=== PATIENT | male | born 1980 | race Caucasian/White ===

== ENCOUNTER 2023-06-02 12:00 | Emergency (ER) | payer BC, SELFPAY ==
--- NOTE | 2023-06-02 12:13 | ED_ITS ---
HPI - General Adult General Time Seen by Provider: 12:13 Date Seen: 06/02/23 Chief complaint: Sore Throat Stated complaint: Sore throat, possible strep Time Seen by Provider: 06/02/23 12:09 Source: patient Mode of arrival: ambulatory Limitations: no limitations History of Present Illness HPI narrative: Eduin is a 43-year-old male with no past medical history presents emergency department via private car and self with a sore throat. Patient states he developed sore throat last Tuesday, he works the 3rd shift at work, throughout the night progressively gotten worse, felt it was harder to swallow, denies any muffling of voice, drooling, feels like his ears are plugged, does not have any ongoing congestion, he developed a cough which is nonproductive yesterday. Only sick contact was sister who is 47, diagnosed with strep pharyngitis. Patient used to smoke 11 years ago. He is get sensation of feeling hot, no fevers, no chills, denies any nausea vomiting, patient has been eating and drinking normally. Denies any chest pain or shortness of breath. He took ibuprofen around 7:00 a.m. this morning. No other concerns at this time. Related Data Home Medications Medication Instructions Recorded Confirmed No Known Home Medications 06/02/23 06/02/23 Allergies Allergy/AdvReac Type Severity Reaction Status Date / Time Penicillins Allergy Unknown Verified 06/02/23 12:14 Review of Systems Status of ROS: Reports: 10 or more systems reviewed and unremarkable except as noted in History and below PFSH PFS Social History Smoking Status: Never smoker Do you use any of these nicotine containing products: Smokeless Tobacco How often do you have a drink containing alcohol: monthly or less AUDIT-C Alcohol total score: 1 Non-prescribed substance use: denies use service: No Exam Narrative: Exam Narrative: General: No obvious distress sitting comfortably, HEENT: Tympanic membranes within normal limits bilaterally, oropharynx shows post oropharyngeal erythema, uvula midline, no peritonsillar abscess, no exudate Neck: Mild bilateral submandibular adenopathy Lungs: Clear to auscultation bilaterally Heart: Normal sinus rhythm S1-S2 Muscle skeletal: +5 strength upper lower extremities Abdomen: Soft nontender Neuro: Alert awake and oriented x3 Const: Vital Signs, click to edit/add: Vital Signs - 24 hr 06/02/23 12:14 Temperature 97.8 F Pulse Rate [Right Pulse Oximeter] 107 H Respiratory Rate 18 Blood Pressure [Ri ght Upper Arm] 169/120 H Pulse Oximetry 97 Oxygen Delivery Me thod Room Air Course Course ED Course: AIDET performed, vitals are stable at this time, mildly elevated blood pressure and heart rate will continue to monitor, workup will include COVID-flu A/B/RSV nasopharyngeal swab, will also obtain strep a DNA probe, 400 mg oral Motrin and 40 mg oral prednisone for pain and inflammation. Differential diagnosis include viral pharyngitis, strep throat, bronchitis, medication side effects, sialadenitis, malignancy, peritonsillar abscess as well as all etiologies. Reevaluation(s) Reevaluation #1: Patient was updated on his lab results, blood pressure improved during his stay, viral nasopharyngeal swabs were negative, group a strep DNA was also negative, he was feeling better after above care given, plan would be to discharge, prescription for 40 mg once daily over the next 3 days, continue with Motrin 4- 600 mg or 1 g Tylenol every 4-6 hours as needed for pain. Follow up with primary in one weeks time. Vital Signs Vital signs: Initial Vital Signs Temperature 97.8 F 06/02/23 12:14 Temperature Source Temporal Artery Scan 06/02/23 12:14 Pulse Rate 107 H 06/02/23 12:14 Respiratory Rate 18 06/02/23 12:14 Blood Pressure 169/120 H 06/02/23 12:14 Blood Pressure Mean 136 H 06/02/23 12:14 Blood Pressure Position Sitting 06/02/23 12:14 Pulse Oximetry 97 06/02/23 12:14 Oxygen Delivery Method Room Air 06/02/23 12:14 Vital Signs Temperature 97.8 F 06/02/23 12:14 Pulse Rate 107 H 06/02/23 12:14 Respiratory Rate 18 06/02/23 12:14 Blood Pressure 169/120 H 06/02/23 12:14 Pulse Oximetry 97 06/02/23 12:14 Oxygen Delivery Method Room Air 06/02/23 12:14 Temperature 97.8 F 06/02/23 12:14 Pulse Rate 107 H 06/02/23 12:14 Respiratory Rate 18 06/02/23 12:14 Blood Pressure 169/120 H 06/02/23 12:14 Pulse Oximetry 97 06/02/23 12:14 Oxygen Delivery Method Room Air 06/02/23 12:14 Medications Administered Medications: Discontinued Medications Generic Name Dose Route Start Last Admin Trade Name T[facility] Reason Stop Dose Admin Ibuprofen 400 mg 06/02/23 12:18 06/02/23 12:27 Ibuprofen 400 Mg Tablet PO 06/02/23 12:19 400 mg ONCE ONE Administration Prednisone 40 mg 06/02/23 12:18 06/02/23 12:27 Prednisone 20 Mg Tablet PO 06/02/23 12:19 40 mg ONCE ONE Administration Medical Decision Making Lab Data Labs: Lab Results 06/02/23 Range/Units 12:10 SARS-CoV-2 (PCR) Negative SARS-CoV-2 (Negative) Influenza Type A (PCR) Negative PCR FLU A (Negative) Influenza Type B (PCR) Negative PCR FLU B (Negative) RSV (PCR) Negative PCR RSV (Negative) Group A Strep DNA NOT DETECTED (Not Detectd) Discharge Plan Discharge Clinical Impression: Pharyngitis Patient Disposition: Home, Self-Care Condition: Improved Instructions: Pharyngitis (ED) Additional Instructions: Prednisone 40 mg daily over the next 3 days, continue with Tylenol and or Motrin every 4-6 hours as needed for pain, follow-up with primary care provider as needed over the next 7-10 days, return if worsening symptoms. Activity Level: No Restrictions Prescriptions: No Action No Known Home Medications Follow Up/Referrals: Provider,Not a Local [Primary Care Provider] - Stand Alone Forms: [facility] Info Instructions
[2023-06-02 12:14] VITALS: BP 169/120; PULSE 107; RESP 18; TEMP 36.6; O2SAT 97; BMI 30.1
[2023-06-02] MEDS: IBUPROFEN 400 MG TABLET PO (12:27)
[2023-06-02] MEDS: predniSONE 20 MG TABLET 40 MG PO (12:27)
[2023-06-02 12:45] LABS: Strep A DNA Probe* NOT DETECTED (Not Detectd)
[2023-06-02 12:56] LABS: PCR FLU A Negative PCR FLU A (Negative); PCR FLU B Negative PCR FLU B (Negative); PCR RSV Negative PCR RSV (Negative)
[2023-06-02 12:57] LABS: SARS PCR* Negative SARS-CoV-2 (Negative)
== END 2023-06-02 13:28 | disposition home or self-care (01) ==
PROVIDERS: Emergency Provider Student in an Organized Health Care Education/Training Program
DX: J02.9 Acute pharyngitis, unspecified (principal)
CPT/HCPCS: 87631; 87651; 99283; 99284; A9270; J7512

== ENCOUNTER 2023-07-04 13:54 | Emergency (ER) | payer OTHER, SELFPAY ==
[2023-07-04 14:26] VITALS: BP 186/103; PULSE 71; RESP 19; TEMP 36.8; O2SAT 98; BMI 31.0
--- NOTE | 2023-07-04 15:25 | ED_ITS ---
HPI - SOB/Dyspnea General Date Seen: 07/04/23 Chief Complaint: Diarrhea Stated Complaint: - home COVID test, roommate + Time Seen by Provider: 07/04/23 14:43 Source: patient Mode of arrival: ambulatory Limitations: no limitations History of Present Illness HPI Narrative: Patient is a 43-year-old gentleman who presents here with his roommate who tested positive for COVID, he has symptoms of a cough sore throat runny nose, he was immunized for COVID the 2 primary series. Denies any side significant fevers, chills nausea vomiting, he does feel little winded when he walks around. No leg swelling, no past history of pulmonary emboli and no cardiac history, he does have an elevated BMI. He is on no chronic medications MD elicited complaint: shortness of breath Context: recent illness Severity: moderate Exacerbating factors: nothing Relieving factors: nothing Associated symptoms: denies other symptoms Treatment prior to arrival: none Related Data Home oxygen amount: none Previous Rx's Medication Instructions Recorded nirmatrelvir 300 mg (150 mg See Rx Instructions PO .COMPLEX 07/04/23 x2)-ritonavir 100 mg tablet,dose #30 ea pack (Paxlovid) Allergies Allergy/AdvReac Type Severity Reaction Status Date / Time Penicillins Allergy Unknown Verified 06/02/23 12:14 PFSH PFS Social History Smoking Status: Never smoker Do you use any of these nicotine containing products: Smokeless Tobacco How often do you have a drink containing alcohol: monthly or less AUDIT-C Alcohol total score: 1 Non-prescribed substance use: denies use service: No Exam Narrative: Exam Narrative: Patient is speaking normally, no problem with slurring words, oriented x3. Head eyes ears nose and throat exam show equal pupils, no scleral icterus, extraocular muscles are normal, no facial droop, speech is normal, trachea normal and midline. Thyroid normal midline palpable not enlarged. Chest shows symmetrical rise bilaterally, normal auscultation with no wheezes, no increased work of breathing, no overt bruising or lesions seen, no tenderness is noted on auscultation. Heart sounds normal with no S3-S4 no murmurs clicks or gallops. Abdomen shows no obvious masses or hepatosplenomegaly, no organomegaly, bowel sounds are normal in all quadrants. No tenderness is noted also in all quadrants. Upper and lower extremities show normal power, normal range of motion, pulses are normal, sensations normal, fine motor movements are normal, pelvis is stable to rocking. Cervical spine shows normal range of motion, and palpably not tender. Thoracic spine shows normal range of motion, and palpably not tender, lumbar spine shows no tenderness to palpation percussion and is otherwise normal range of motion. Skin shows no rashes, petechiae or eccymosis. Const: Vital Signs, click to edit/add: Vital Signs - 24 hr 07/04/23 14:26 07/04/23 16:04 07/04/23 16:08 Temperature 98.2 F Pulse Rate [Pulse Oximeter] 71 Respiratory Rate 19 Blood Pressure [Ri ght Upper Arm] 186/103 H 160/117 H 140/110 H Pulse Oximetry 98 Oxygen Delivery Me thod Room Air 07/04/23 16:52 Temperature Pulse Rate [Pulse Oximeter] 79 Respiratory Rate 16 Blood Pressure [Ri ght Upper Arm] Pulse Oximetry 97 Oxygen Delivery Me thod Room Air Course Course ED Course: Patient's COVID was positive, given his elevated BMI he is a candidate for Paxlovid went over the risks benefits and side effects, he is in agreement to this prescription given. Note for work written. The blood pressure was improved but still elevated, I recommend follow-up in the clinic. Vital Signs Vital signs: Initial Vital Signs Temperature 98.2 F 07/04/23 14:26 Temperature Source Temporal Artery Scan 07/04/23 14:26 Pulse Rate 71 07/04/23 14:26 Respiratory Rate 07/04/23 14:26 Blood Pressure 186/103 H 07/04/23 14:26 Blood Pressure Mean 130 H 07/04/23 14:26 Pulse Oximetry 98 07/04/23 14:26 Oxygen Delivery Method Room Air 07/04/23 14:26 Vital Signs Temperature 98.2 F 07/04/23 14:26 Pulse Rate 71 07/04/23 14:26 Respiratory Rate 19 07/04/23 14:26 Blood Pressure 186/103 H 07/04/23 14:26 Pulse Oximetry 98 07/04/23 14:26 Oxygen Delivery Method Room Air 07/04/23 14:26 Temperature 98.2 F 01/01/24 14:26 Pulse Rate 79 07/04/23 16:52 Respiratory Rate 16 07/04/23 16:52 Blood Pressure 140/110 H 07/04/23 16:08 Pulse Oximetry 97 07/04/23 16:52 Oxygen Delivery Method Room Air 07/04/23 16:52 MDM - SOB/Dyspnea MDM Narrative Medical decision making narrative: Life-threatening differential diagnosis includes occluded COPD exacerbation, pulmonary edema, acute coronary syndromes, pulmonary embolism, pneumonia, and pneumothorax. Other differential diagnosis considerations include asthma, bronchitis as well as other etiologies Lab Data Labs: Lab Results 07/04/23 Range/Units 15:13 SARS-CoV-2 (PCR) POSITIVE SARS-CoV-2 A (Negative) Influenza Type A (PCR) Negative PCR FLU A (Negative) Influenza Type B (PCR) Negative PCR FLU B (Negative) RSV (PCR) Negative PCR RSV (Negative) Discharge Plan Discharge Clinical Impression: Upper respiratory infection, viral, COVID-19, Elevated blood pressure reading Patient Disposition: Home, Self-Care Condition: Stable Instructions: Pharyngitis (ED), Upper Respiratory Infection (ED), COVID-19 (Coronavirus Disease 2019) (ED) Additional Instructions: Home rest use of medications as directed, you are a candidate for use of the anti COVID medication, off work till Tuesday, follow up to recheck your blood pressure sure as it is elevated this may be due to the sickness, but I would like you to follow-up and discuss with primary care return here if increasing chest pain shortness of breath. Activity Level: Light activity Prescriptions: New Paxlovid 300 mg (150 mg x 2)-100 mg tablets,dose pack See Rx Instructions .ROUTE .COMPLEX Qty: 30 0RF Rx Instructions: take TWO 150 mg tablets of nirmatrelvir with ONE 100 mg tablet of ritonavir twice daily for 5 days Follow Up/Referrals: Provider,Not a Local [Primary Care Provider] - Stand Alone Forms: [facility] Info Instructions
[2023-07-04 16:00] LABS: PCR FLU A Negative PCR FLU A (Negative); PCR FLU B Negative PCR FLU B (Negative); PCR RSV Negative PCR RSV (Negative)
[2023-07-04 16:03] LABS: SARS PCR* POSITIVE SARS-CoV-2 (Negative)
[2023-07-04 16:04] VITALS: BP 160/117
[2023-07-04 16:08] VITALS: BP 140/110
[2023-07-04 16:52] VITALS: PULSE 79; RESP 16; O2SAT 97
== END 2023-07-04 16:53 | disposition home or self-care (01) ==
PROVIDERS: Emergency Provider Family Medicine
DX: J06.9 Acute upper respiratory infection, unspecified (principal); U07.1 COVID-19; R03.0 Elevated blood-pressure reading, without diagnosis of hypertension
CPT/HCPCS: 87631; 99283